=== PATIENT | male | born 2000 | race Hispanic/Latino ===

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

== ENCOUNTER 2018-01-07 21:46 | Emergency (ER) | payer SELFPAY ==
[2018-01-07 21:47] VITALS: BMI 25.7
--- NOTE | 2018-01-07 22:06 | ED PDOC ---
Arrival/HPI - General Time Seen by Provider: 01/07/18 21:59 Historian: Patient - History of Present Illness Narrative History of Present Illness (Text): 01/07/18 22:01 17 y/o male, no significant pmh, psychiatric history of anxiety, c/o feeling suddenly anxious/feeling numbness and can't breath about 30 minutes ago. Pt. has no recent traveling, no extremity pain, no night sweat, no change in vision , no slurred speech, no other medical or psychological complaints. Pt. has no homicidal or suicidal ideation, no auditory or visual hallucination. Past Medical History - Provider Review Nursing Documentation Reviewed: Yes - Past History Past History: No Previous - Tetanus Immunization Tetanus Immunization: Up to Date - Cardiac Hx Cardiac Disorders: No - Pulmonary Hx Respiratory Disorders: No - Neurological Hx Neurological Disorder: No - HEENT Hx HEENT Disorder: No - Renal Hx Renal Disorder: No - Endocrine/Metabolic Hx Endocrine Disorders: No - Hematological/Oncological Hx Blood Disorders: No - Integumentary Hx Dermatological Disorder: No - Musculoskeletal/Rheumatological Hx Fractures: Yes (right hand) - Gastrointestinal Hx Gastrointestinal Disorders: No - Genitourinary/Gynecological Hx Genitourinary Disorders: No - Psychiatric Hx Anxiety: Yes Hx Depression: No Hx Emotional Abuse: No Hx Physical Abuse: No Hx Substance Use: No - Past Surgical History Past Surgical History: No Previous - Surgical History Other/Comment: adenoidectomy - Anesthesia Hx Anesthesia: Yes Hx Anesthesia Reactions: No Hx Malignant Hyperthermia: No - Suicidal Assessment Feels Threatened In Home Enviroment: No Family/Social History - Physician Review Nursing Documentation Reviewed: Yes Family/Social History: Unknown Family HX Smoking Status: Former Smoker Hx Alcohol Use: No Hx Substance Use: No Hx Substance Use Treatment: No Allergies/Home Meds Allergies/Adverse Reactions: Allergies No Known Allergies Allergy (Verified 10/14/17 22:48) Home Medications: Home Meds Medication Instructions Recorded Confirmed No Known Home Med 10/14/17 01/07/18 Review of Systems - Review of Systems Constitutional: absent: Fatigue, Fevers Eyes: absent: Vision Changes ENT: absent: Hearing Changes Respiratory: SOB. absent: Cough Cardiovascular: absent: Chest Pain Gastrointestinal: absent: Abdominal Pain, Nausea, Vomiting Skin: absent: Rash, Pruritis Neurological: absent: Headache, Dizziness Psychiatric: Anxiety. absent: Depression, Suicidal Ideation Physical Exam Vital Signs Temp Pulse Resp BP Pulse Ox 01/08/18 01:35 98 F 76 18 128/73 98 01/07/18 22:04 98.2 F 76 18 139/84 99 - Systems Exam Head: Present: Atraumatic, Normocephalic Pupils: Present: PERRL Extroacular Muscles: Present: EOMI Conjunctiva: Present: Normal Mouth: Present: Moist Mucous Membranes Neck: Present: Normal Range of Motion Respiratory/Chest: Present: Clear to Auscultation, Good Air Exchange. No: Respiratory Distress, Accessory Muscle Use Cardiovascular: Present: Regular Rate and Rhythm, Normal S1, S2. No: Murmurs Abdomen: No: Tenderness, Distention, Peritoneal Signs Back: Present: Normal Inspection Upper Extremity: Present: Normal Inspection. No: Cyanosis, Edema Lower Extremity: Present: Normal Inspection. No: Edema Neurological: Present: GCS=15, CN II-XII Intact, Speech Normal, Motor Func Grossly Intact, Gait Normal, Memory Normal, Other (no focal neurological deficits. ) Skin: Present: Warm, Dry, Normal Color. No: Rashes Psychiatric: Present: Alert, Oriented x 3, Normal Insight, Normal Concentration , Anxious Medical Decision Making ED Course and Treatment: 01/07/18 22:08 -labs/uds -ekg -cxr -IVF/ativan 01/08/18 01:10 -EKG: NSR @ 82 BPM, no ST elevation or depression, no T wave inversion. -Chest xray show no active disease -Labs show no acute findings -Pt. is asymptomatic, resolved with IV ativan, request to be discharged home, refused psychiatric evaluation -Discharge home with education on follow up with your own pmd and psychiatrist within 2 days, return to the ER for any new or worsening signs or symptoms. - Lab Interpretations Lab Results: 01/07/18 23:37 01/07/18 23:37 Lab Results 01/07/18 23:37: Sodium 145, Potassium 3.9, Chloride 103, Carbon Dioxide 29, Anion Gap 17, BUN 15, Creatinine 1.0, Est GFR ( Amer) > 60, Est GFR (Non- Af Amer) > 60, Random Glucose 104, Calcium 9.8, Magnesium 2.0, Total Bilirubin 0.5, AST 179 H, ALT 85 H, Alkaline Phosphatase 45, Total Protein 7.6, Albumin 4.7, Globulin 2.9, Albumin/Globulin Ratio 1.6 01/07/18 23:37: WBC 8.7 D, RBC 5.02, Hgb 14.4, Hct 41.3 L, MCV 82.3, MCH 28.7, MCHC 34.9, RDW 12.5, Plt Count 267, MPV 10.0, Gran % 65.2, Lymph % (Auto) 20.8 L , [place] % (Auto) 13.2 H, Eos % (Auto) 0.3 L, Baso % (Auto) 0.5, Gran # 5.69, Lymph # (Auto) 1.8, [place] # (Auto) 1.2 H, Eos # (Auto) 0.0, Baso # (Auto) 0.04 I have reviewed the lab results: Yes - RAD Interpretation Radiology Orders: 01/07/18 22:09 CHEST TWO VIEWS (PA/LAT) [RAD] Stat HISTORY: medical clearance COMPARISON: 05/06/2015 TECHNIQUE: Chest PA and lateral FINDINGS: LUNGS: No active pulmonary disease. PLEURA: No significant pleural effusion identified. No pneumothorax apparent. CARDIOVASCULAR: Normal. OSSEOUS STRUCTURES: No significant abnormalities. VISUALIZED UPPER ABDOMEN: Normal. OTHER FINDINGS: None. IMPRESSION: No active disease. 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 - Medication Orders Current Medication Orders: Discontinued Medications Sodium Chloride (Sodium Chloride 0.9%) 1,000 mls @ 999 mls/hr IV .Q1H1M STA Stop: 01/07/18 23:09 Last Admin: 01/07/18 23:42 Dose: 999 mls/hr eMAR Start Stop Document 01/07/18 23:42 TRACY (Rec: 01/07/18 23:42 TRACY [id number]) Intravenous Solution Start Date 01/07/18 Start Time 23:42 End Date 01/08/18 End time 00:43 Total Infusion Time 61 Lorazepam (Ativan) 2 mg IVP ONCE ONE PRN Reason: Protocol Stop: 01/07/18 22:10 Last Admin: 01/07/18 23:31 Dose: 2 mg IVP Administration Document 01/07/18 23:31 LA (Rec: 01/07/18 23:37 LA [id number]) Charges for Administration # of IVP Administrations 1 - PA / LEASING SPECIALIST / Resident Statement MD/DO has reviewed & agrees with the documentation as recorded. Disposition/Present on Arrival - Present on Arrival Any Indicators Present on Arrival: No History of DVT/PE: No History of Uncontrolled Diabetes: No Urinary Catheter: No History of Decub. Ulcer: No History Surgical Site Infection Following: None - Disposition Have Diagnosis and Disposition been Completed?: Yes Diagnosis: Panic attack Disposition: HOME/ ROUTINE Disposition Time: 22:09 Patient Plan: Discharge Condition: IMPROVED Discharge Instructions (ExitCare): Panic Disorder, Anxiety, Adult (DC) Additional Instructions: -Discharge home with education on follow up with your own pmd and psychiatrist within 2 days, return to the ER for any new or worsening signs or symptoms. Referrals: [facility] [place]] - Follow [facility] with [facility] [[facility]] - Follow up with primary Forms: WORK NOTE
[2018-01-07 22:07] VITALS: PULSE 76; RESP 18
[2018-01-07] MEDS ORDERED: Sodium Chloride 0.9% 1,000 ML IV STA (22:09)
[2018-01-07 23:49] LABS: BASO # 0.04 K/mm3 (0.0-2.0); BASO % 0.5 % (0.0-3.0); EOS % 0.3 % (1.5-5.0); GRAN # 5.69 (1.4-6.5); GRAN % 65.2 % (50.0-68.0); HEMOGLOBIN 14.4 g/dL (14.0-18.0); LYMPH # 1.8 (1.2-3.4); LYMPH % 20.8 % (22.0-35.0); MEAN CELL VOLUME 82.3 fl (80.0-105.0); MEAN CORPUSCULAR HEMOGLOBIN 28.7 pg (25.0-35.0); MEAN CORPUSCULAR HGB CONC 34.9 g/dl (31.0-37.0); MONO # 1.2 (0.1-0.6); MONO % 13.2 % (1.0-6.0); RBC 5.02 10^6/uL (3.5-6.1); RED CELL DISTRIBUTION WIDTH 12.5 % (11.5-14.5); WHITE BLOOD COUNT 8.7 10^3/ul (4.5-11.0)
[2018-01-08] LABS: ALB/GLOB RATIO 1.6 (1.1-1.8); ALBUMIN 4.7 g/dL (3.0-4.8); ALT/SGPT 85 U/L (7-56); AST/SGOT 179 U/L (17-59); BLOOD UREA NITROGEN 15 mg/dL (7-21); CALCIUM 9.8 mg/dL (8.4-10.5); GFR AFRICAN-AMERICAN > 60; GFR NON-AFRICAN AMERICAN > 60
[2018-01-08 02:42] VITALS: BP 128/73; TEMP 98; O2SAT 98
--- NOTE | 2018-01-08 08:56 | RAD ---
HISTORY: medical clearance COMPARISON: 05/06/2015 TECHNIQUE: Chest PA and lateral FINDINGS: LUNGS: No active pulmonary disease. PLEURA: No significant pleural effusion identified. No pneumothorax apparent. CARDIOVASCULAR: Normal. OSSEOUS STRUCTURES: No significant abnormalities. VISUALIZED UPPER ABDOMEN: Normal. OTHER FINDINGS: None. IMPRESSION: No active disease.
--- NOTE | 2018-01-08 09:34 | CARD ---
APPROVED REPORT EKG Measurement Heart [id number] ME [id number] [id number] <Conclusion> Normal sinus rhythm Normal ECG
== END 2018-01-08 01:35 | disposition home or self-care (01) ==
LOC: ED 21:46
DX: F41.0 Panic disorder [episodic paroxysmal anxiety] (principal); Z87.891 Personal history of nicotine dependence
CPT/HCPCS: 71046; 80053; 83735; 85025; 93005; 96361; 96374; 99284; J2060; J7040